=== PATIENT | male | born 1990 | race African-American/Black ===

== ENCOUNTER 2017-02-16 00:48 | Inpatient (IN) | payer MEDICAID ==
[~2017-02-16] VITALS: Ht 175.3 cm; Wt 72.6 kg
[2017-02-16 02:39] LABS: CLARITY URINE CLEAR (CLEAR); COLOR URINE DARK YELLOW (YELLOW); GLUCOSE URINE NEGATIVE (NEGATIVE); KETONES URINE TRACE (NEGATIVE); LEUKOCYTE ESTERASE URINE 1+ (NEGATIVE); NITRITE URINE NEGATIVE (NEGATIVE); OCCULT BLOOD URINE NEGATIVE (NEGATIVE); PROTEIN URINE NEGATIVE (NEGATIVE); SPECIFIC GRAVITY URINE 1.033 (1.005-1.030)
[2017-02-16 02:50] LABS: BASOPHILS % 2.1 % (0.0-2.0); EOSINOPHILS % 9.3 % (0.0-5.0); HEMATOCRIT. 36.5 % (42.0-52.0); LYMPHOCYTES % 39.2 % (20.0-50.0); MEAN CORPUSCULAR HEMOGLOBIN 27.2 pg (28.0-32.0); MEAN CORPUSCULAR HGB CONC 32.9 g/dL (31.0-37.0); MEAN CORPUSCULAR VOLUME 82.6 fL (80.0-94.0); MEAN PLATELET VOLUME 7.8 fl (7.4-10.4); MONOCYTES % 8.2 % (2.0-8.0); NEUTROPHILS % 41.2 % (40.0-76.0); PLATELET 307 x1000/uL (130-400); RED BLOOD CELL COUNT 4.41 mill/uL (4.7-6.1); RED CELL DISTRIBUTION WIDTH 15.4 % (11.6-14.6)
[2017-02-16 02:59] LABS: *AMPHETAMINES SCREEN URINE NEGATIVE (NEGATIVE); *BARBITURATES SCREEN URINE NEGATIVE (NEGATIVE); *BENZODIAZEPINES SCREEN URINE NEGATIVE (NEGATIVE); *COCAINE SCREEN URINE NEGATIVE (NEGATIVE); CANNABINOID URINE SCREEN PRESUMTIVE POSITIVE (NEGATIVE); ECSTASY MDMA SCREEN URINE NEGATIVE (NEGATIVE); METHADONE URINE SCREEN NEGATIVE (NEGATIVE); OPIATES URINE SCREEN NEGATIVE (NEGATIVE); PHENCYCLIDINE URINE SCREEN NEGATIVE (NEGATIVE)
[2017-02-16 03:04] LABS: ALANINE AMINOTRANSFERASE < 6 IU/L (13-61); ALBUMIN 3.1 g/dL (3.4-5.0); ANION GAP 13; CALCIUM 8.1 mg/dL (8.5-10.1); CARBON DIOXIDE 26 mEq/L (21-32); CHLORIDE 110 mEq/L (98-107); INDEX HEMOLYSI 1 (1-3); INDEX ICTERIC 1 (1-4); INDEX LIPEMIC 1 (1-3); LIPASE 205 IU/L (73-393); UREA NITROGEN BLOOD 9 mg/dL (7-21); eGFR > 60 mL/min (>60)
[2017-02-16 03:10] LABS: SQUAMOUS EPITHELIAL CELL URINE FEW /lpf (RARE/1+)
[2017-02-16 03:11] LABS: RBC URINE 0-2 /hpf (0-2)
[2017-02-16 03:14] LABS: BACTERIA URINE TRACE
[2017-02-16] MEDS ORDERED: ONDANSETRON HCL 4MG/2ML VIAL IV STA (03:41)
[2017-02-16] MEDS ORDERED: MORPHINE SULFATE 4 MG/ML CPJ (NOT FOR IM USE) IV STA (03:41)
[2017-02-16] MEDS ORDERED: SODIUM CHLORIDE 0.9% 1,000 ML IV ONE ×2 (03:41→06:00)
[2017-02-16] MEDS ORDERED: METRONIDAZOLE 500 MG PREMIX 100 ML IV ONE (06:00)
[2017-02-16] MEDS ORDERED: LEVOFLOXACIN 750MG PREMIX 150 ML IV ONE (06:00)
[2017-02-16] MEDS ORDERED: MAGNESIUM/ALUMINUM HYDROXIDE/SIMETHICONE 30ML UDC PO PRN (11:00)
[2017-02-16] MEDS ORDERED: HYDROCODONE/APAP 7.5/325MG 1 TAB TABLET PO PRN (11:00)
[2017-02-16] MEDS ORDERED: ACETAMINOPHEN 325MG TABLET PO PRN (11:00)
[2017-02-16] MEDS ORDERED: ONDANSETRON HCL 4MG/2ML VIAL IV PRN (11:00)
[2017-02-16] MEDS ORDERED: IPRATROPIUM/ALBUTEROL 0.5-3(2.5)MG/3ML NEB INH PRN (11:00)
[2017-02-16] MEDS ORDERED: CLONIDINE 0.1MG TABLET PO PRN (11:00)
[2017-02-16 11:32] LABS: ANION GAP 13; CALCIUM 8.1 mg/dL (8.5-10.1); CARBON DIOXIDE 27 mEq/L (21-32); CHLORIDE 109 mEq/L (98-107); INDEX HEMOLYSI 1 (1-3); INDEX ICTERIC 1 (1-4); INDEX LIPEMIC 1 (1-3); MAGNESIUM 1.6 mg/dL (1.8-2.4); UREA NITROGEN BLOOD 5 mg/dL (7-21); eGFR > 60 mL/min (>60)
[2017-02-16 12:00] VITALS: BP 138/89
[2017-02-16 12:07] VITALS: BP 138/89
[2017-02-16 12:16] LABS: CLARITY URINE CLEAR (CLEAR); COLOR URINE YELLOW (YELLOW); GLUCOSE URINE NEGATIVE (NEGATIVE); KETONES URINE 1+ (NEGATIVE); LEUKOCYTE ESTERASE URINE NEGATIVE (NEGATIVE); NITRITE URINE NEGATIVE (NEGATIVE); OCCULT BLOOD URINE NEGATIVE (NEGATIVE); PROTEIN URINE NEGATIVE (NEGATIVE); SPECIFIC GRAVITY URINE 1.037 (1.005-1.030); UROBILINOGEN URINE 0.2 E.U./dL (0.2-1.0)
[2017-02-16] MEDS: ENOXAPARIN 40MG/0.4ML SYR SUBCUT SCH (12:22)
[2017-02-16] MEDS: SODIUM CHLORIDE 0.9% 1,000 ML IV SCH (12:45)
[2017-02-16] MEDS ORDERED: SODIUM CHLORIDE 0.9% 10ML VIAL ONE (13:32)
[2017-02-16] MEDS ORDERED: IOHEXOL-300 100 ML BOTTLE ONE (13:32)
[2017-02-16] MEDS ORDERED: CEFTRIAXONE 1 G PREMIX 50 ML IV SCH (14:00)
[2017-02-16] MEDS ORDERED: METRONIDAZOLE 500 MG PREMIX 100 ML IV SCH (14:00)
[2017-02-16] MEDS: MESALAMINE 400 MG CAPSULE.DR PO SCH ×2 (14:15→16:03)
[2017-02-16] MEDS: METRONIDAZOLE 500 MG PREMIX 100 ML IV SCH ×2 (14:34→21:44)
[2017-02-16] MEDS: MORPHINE SULFATE 2 MG/ML CPJ (NOT FOR IM USE) IV PRN ×2 (14:34→21:46)
[2017-02-16 16:00] VITALS: BP 132/90
[2017-02-16] MEDS: METHYLPREDNISOLONE SOD SUCC 40 MG/ML VIAL IV SCH ×2 (16:04→21:44)
[2017-02-16] MEDS: DIPHENHYDRAMINE 25MG CAPSULE PO PRN (18:15)
[2017-02-16] MEDS: CEFTRIAXONE 1 G PREMIX 50 ML IV SCH (19:05)
[2017-02-16 20:00] VITALS: BP 116/74
[2017-02-17] VITALS (7 sets, daily range): BP systolic 107–122; BP diastolic 70–92
[2017-02-17] MEDS: DIPHENHYDRAMINE 25MG CAPSULE PO PRN (01:01)
[2017-02-17] MEDS: SODIUM CHLORIDE 0.9% 1,000 ML IV SCH ×2 (01:02→23:47)
[2017-02-17] MEDS: METRONIDAZOLE 500 MG PREMIX 100 ML IV SCH ×2 (05:49→14:38)
[2017-02-17] MEDS: METHYLPREDNISOLONE SOD SUCC 40 MG/ML VIAL IV SCH ×3 (05:49→21:35)
[2017-02-17] MEDS: MORPHINE SULFATE 2 MG/ML CPJ (NOT FOR IM USE) IV PRN ×3 (05:51→23:48)
[2017-02-17 07:22] LABS: BASOPHILS % 0.5 % (0.0-2.0); HEMATOCRIT. 39.2 % (42.0-52.0); HEMOGLOBIN. 12.7 g/dL (14.0-18.0); LYMPHOCYTES % 13.5 % (20.0-50.0); MEAN CORPUSCULAR HEMOGLOBIN 27.4 pg (28.0-32.0); MEAN CORPUSCULAR HGB CONC 32.5 g/dL (31.0-37.0); MEAN CORPUSCULAR VOLUME 84.3 fL (80.0-94.0); MEAN PLATELET VOLUME 8.8 fl (7.4-10.4); MONOCYTES % 1.4 % (2.0-8.0); NEUTROPHILS % 84.6 % (40.0-76.0); PLATELET 334 x1000/uL (130-400); RED BLOOD CELL COUNT 4.64 mill/uL (4.7-6.1); RED CELL DISTRIBUTION WIDTH 15.8 % (11.6-14.6); WHITE BLOOD COUNT 6.2 x1000/uL (4.5-11.0)
[2017-02-17 08:33] LABS: THYROID STIMULATING HORMONE 0.41 uIU/mL (0.36-3.74)
[2017-02-17] MEDS: ENOXAPARIN 40MG/0.4ML SYR SUBCUT SCH (09:08)
[2017-02-17] MEDS: MESALAMINE 400 MG CAPSULE.DR PO SCH ×3 (09:09→18:16)
[2017-02-17] MEDS: DIPHENHYDRAMINE 50MG/ML VIAL IV PRN ×2 (15:04→21:35)
[2017-02-17] MEDS: CEFTRIAXONE 1 G PREMIX 50 ML IV SCH (18:15)
[2017-02-17] MEDS: METRONIDAZOLE 500MG TABLET PO SCH (21:35)
[2017-02-18] VITALS: BP 117/85
[2017-02-18 04:00] VITALS: BP 131/86
[2017-02-18] MEDS: METRONIDAZOLE 500MG TABLET PO SCH ×2 (06:23→14:19)
[2017-02-18 06:24] LABS: ANION GAP 13; CALCIUM 8.6 mg/dL (8.5-10.1); CARBON DIOXIDE 25 mEq/L (21-32); CHLORIDE 109 mEq/L (98-107); INDEX HEMOLYSI 1 (1-3); INDEX ICTERIC 1 (1-4); INDEX LIPEMIC 1 (1-3); UREA NITROGEN BLOOD 7 mg/dL (7-21); eGFR > 60 mL/min (>60)
[2017-02-18 06:44] LABS: BASOPHILS % 0.3 % (0.0-2.0); EOSINOPHILS % 0.1 % (0.0-5.0); HEMATOCRIT. 36.9 % (42.0-52.0); HEMOGLOBIN. 11.9 g/dL (14.0-18.0); LYMPHOCYTES % 9.9 % (20.0-50.0); MEAN CORPUSCULAR HGB CONC 32.3 g/dL (31.0-37.0); MEAN CORPUSCULAR VOLUME 83.5 fL (80.0-94.0); MEAN PLATELET VOLUME 9.1 fl (7.4-10.4); MONOCYTES % 4.4 % (2.0-8.0); NEUTROPHILS % 85.3 % (40.0-76.0); PLATELET 328 x1000/uL (130-400); RED BLOOD CELL COUNT 4.43 mill/uL (4.7-6.1); RED CELL DISTRIBUTION WIDTH 15.6 % (11.6-14.6); WHITE BLOOD COUNT 16.5 x1000/uL (4.5-11.0)
[2017-02-18 08:00] VITALS: BP 126/85
[2017-02-18] MEDS ORDERED: PREDNISONE 20MG TABLET PO SCH (09:00)
[2017-02-18] MEDS: MESALAMINE 400 MG CAPSULE.DR PO SCH ×2 (09:32→14:19)
[2017-02-18] MEDS: ENOXAPARIN 40MG/0.4ML SYR SUBCUT SCH (09:33)
[2017-02-18] MEDS: MORPHINE SULFATE 2 MG/ML CPJ (NOT FOR IM USE) IV PRN (10:15)
[2017-02-18 12:00] VITALS: BP 118/82
[2017-02-18] MEDS: DIPHENHYDRAMINE 50MG/ML VIAL IV PRN (14:19)
[2017-02-18] MEDS: SODIUM CHLORIDE 0.9% 1,000 ML IV SCH (14:22)
[2017-02-18 14:37] VITALS: BP 126/85
[2017-02-20 15:07] LABS: ATYPICAL pANCA <1:20 titer (Neg:<1:20)
[2017-02-21 14:33] LABS: SACCHAROMYCES CEREVISIAE IGG <20.0 Units (0.0-24.9); SACCHAROMYCES CEREVISIAE IGM <20.0 Units (0.0-24.9)
== END 2017-02-18 15:30 | disposition home or self-care (01) | DRG 245 ==
LOC: ER 00:48 → 6EST 06:36
PROVIDERS: ADMIT Internal Medicine; ATTEND Internal Medicine
DX: K50.90 Crohn's disease, unspecified, without complications (principal); D64.9 Anemia, unspecified; F12.90 Cannabis use, unspecified, uncomplicated; Z90.49 Acquired absence of other specified parts of digestive tract
CPT/HCPCS: 36415; 74177; 80048; 80053; 80061; 80305; 81001; 81003; 82270; 83690; 83735; 84443; 85025; 86256; 86671; 87015; 87040; 87045; 87086; 87427; 87449; 87493; 89055; 93970; 96361; 96365; 96366; 96368; 96375; 99285; A4216; J0696; J1200; J1650; J1956; J2270; J2405; J2920; J3490; J7030; J7512; Q0163; Q9967